=== PATIENT | male | born 1940 | race Caucasian/White ===

== ENCOUNTER 2016-10-29 17:32 | Emergency (ER) | payer OTHER ==
[2016-10-29 18:40] LABS: HEMOGLOBIN 15.6 gm/dl (14.0-17.5); RED BLOOD COUNT 4.84 M/UL (4.20-5.50); WHITE BLOOD COUNT 11.1 K/UL (4.5-11.0)
[2016-10-29 19:01] LABS: BUN/CREATININE RATIO 22 (0-10)
== END 2016-10-29 20:17 | disposition home or self-care (01) ==
LOC: ER1 17:32
PROVIDERS: Preventive Medicine Occupational Medicine
DX: T78.40XA Allergy, unspecified, initial encounter (principal); M19.90 Unspecified osteoarthritis, unspecified site; I48.91 Unspecified atrial fibrillation; J44.9 Chronic obstructive pulmonary disease, unspecified; X58.XXXA Exposure to other specified factors, initial encounter
CPT/HCPCS: 36415; 71010; 80053; 82550; 82553; 83874; 84484; 85025; 93005; 96374; 96375; 99283; J1200; J2930

== ENCOUNTER 2021-04-03 21:44 | Emergency (ER) | payer OTHER ==
[~2021-04-03 21:44] MED LIST: AMIODARONE HCL200 MG PO; BUSPIRONE HCL5 MG PO; CARVEDILOL25 MG PO; COQ1050 MG PO; DULOXETINE HCL20 MG PO; FISH OIL 1,0001 EAC4 PO; IPRAT-ALBUT 0.5-3 ML INH; MAGNESIUM250 MG PO; NEBULIZER UNIT INH; NITROSTAT0.4 MG SL; ONE DAILY MULT1 EAC1 PO; POTASSIUM99 M1 PO; PRAVACHOL20 MG PO; PROTONIX40 MG PO; ROXICODONE TAB 55 MG PO; SYMBICORT 160-1 INHA INH; VITAMIN C500 M4 PO; VITAMIN D1000 UNI1 PO; XARELTO20 MG PO
[2021-04-03 23:12] LABS: HEMOGLOBIN 12.9 gm/dl (14.0-17.5); RED BLOOD COUNT 4.22 M/UL (4.20-5.50); WHITE BLOOD COUNT 9.4 K/UL (4.5-11.0)
[2021-04-04] MEDS ORDERED: OMNICEF 300 MG300 MG PO (02:48)
== END 2021-04-04 03:00 | disposition home or self-care (01) ==
LOC: ER1 21:44
PROVIDERS: Emergency Medicine
DX: N30.90 Cystitis, unspecified without hematuria (principal); E11.9 Type 2 diabetes mellitus without complications; I10 Essential (primary) hypertension; J44.9 Chronic obstructive pulmonary disease, unspecified
CPT/HCPCS: 80053; 81001; 83605; 83690; 85025; 85610; 96374; 96375; 99284; J2270; J2405; Q9967

== ENCOUNTER 2021-04-05 22:43 | Emergency (ER) | payer OTHER ==
[~2021-04-05 22:43] MED LIST changes: +OMNICEF 300 MG300 MG PO
[2021-04-05 23:42] LABS: HEMOGLOBIN 11.6 gm/dl (14.0-17.5); RED BLOOD COUNT 3.85 M/UL (4.20-5.50); WHITE BLOOD COUNT 9.9 K/UL (4.5-11.0)
== END 2021-04-06 01:16 | disposition home or self-care (01) ==
LOC: ER1 22:43
PROVIDERS: Preventive Medicine Occupational Medicine
DX: F41.9 Anxiety disorder, unspecified (principal); G89.29 Other chronic pain
CPT/HCPCS: 71045; 80048; 85025; 93005; 99284

== ENCOUNTER → 2021-05-23 | Outpatient (CLI) | payer OTHER ==
[2021-05-23 14:36] LABS: HEMOGLOBIN 12.6 gm/dl (14.0-17.5); RED BLOOD COUNT 4.12 M/UL (4.20-5.50); WHITE BLOOD COUNT 8.8 K/UL (4.5-11.0)
== END ==
LOC: LAB 13:02
PROVIDERS: Nurse Practitioner Family
DX: E11.9 Type 2 diabetes mellitus without complications (principal); I10 Essential (primary) hypertension; E55.9 Vitamin D deficiency, unspecified; R60.9 Edema, unspecified
CPT/HCPCS: 80053; 80061; 82570; 82607; 83036; 84156; 84439; 84443; 85025

== ENCOUNTER 2021-08-03 15:16 | Emergency (ER) | payer OTHER ==
[2021-08-03 16:08] LABS: HEMOGLOBIN 12.8 gm/dl (14.0-17.5); RED BLOOD COUNT 4.21 M/UL (4.20-5.50); WHITE BLOOD COUNT 9.6 K/UL (4.5-11.0)
== END 2021-08-03 20:48 | disposition home or self-care (01) ==
LOC: ER1 15:16
PROVIDERS: Physician Assistant
DX: R33.9 Retention of urine, unspecified (principal); I48.91 Unspecified atrial fibrillation; F17.200 Nicotine dependence, unspecified, uncomplicated; J44.9 Chronic obstructive pulmonary disease, unspecified; I25.10 Atherosclerotic heart disease of native coronary artery without angina pectoris; I42.9 Cardiomyopathy, unspecified; Z79.01 Long term (current) use of anticoagulants; Z95.810 Presence of automatic (implantable) cardiac defibrillator
CPT/HCPCS: 51702; 71045; 80048; 81001; 82550; 82553; 83735; 83874; 84484; 85025; 87086; 93005; 99284

== ENCOUNTER 2021-09-03 21:35 | Emergency (ER) | payer OTHER ==
[2021-09-03 22:37] LABS: HEMOGLOBIN 11.7 gm/dl (14.0-17.5); RED BLOOD COUNT 3.96 M/UL (4.20-5.50); WHITE BLOOD COUNT 7.3 K/UL (4.5-11.0)
[2021-09-03] MEDS ORDERED: CEFUROXIME500 MG PO (23:31)
== END 2021-09-04 04:06 | disposition home or self-care (01) ==
LOC: ER1 21:35
PROVIDERS: Physician Assistant
DX: N39.0 Urinary tract infection, site not specified (principal); J18.9 Pneumonia, unspecified organism; R33.9 Retention of urine, unspecified; I11.0 Hypertensive heart disease with heart failure; I50.9 Heart failure, unspecified; R07.9 Chest pain, unspecified; E11.9 Type 2 diabetes mellitus without complications; I48.91 Unspecified atrial fibrillation; Z87.442 Personal history of urinary calculi; R06.00 Dyspnea, unspecified
CPT/HCPCS: 71045; 80053; 81001; 82550; 82553; 83605; 83880; 84484; 85025; 87077; 87086; 87186; 93005; 94664; 96374; 96375; 99284; J0696; J1940

== ENCOUNTER 2021-12-27 04:52 | Emergency (ER) | payer OTHER ==
[~2021-12-27 04:52] MED LIST changes: +CEFUROXIME500 MG PO
== END 2021-12-27 05:55 | disposition home or self-care (01) ==
LOC: ER1 04:52
DX: R33.9 Retention of urine, unspecified (principal); R10.819 Abdominal tenderness, unspecified site; E11.9 Type 2 diabetes mellitus without complications; I11.0 Hypertensive heart disease with heart failure; I50.9 Heart failure, unspecified; J44.9 Chronic obstructive pulmonary disease, unspecified; F17.210 Nicotine dependence, cigarettes, uncomplicated; Z95.810 Presence of automatic (implantable) cardiac defibrillator; Z88.7 Allergy status to serum and vaccine; Z87.442 Personal history of urinary calculi
CPT/HCPCS: 51702; 81001; 87086; 99283

== ENCOUNTER 2022-01-25 12:42 | Emergency (ER) | payer OTHER ==
[2022-01-25 14:10] LABS: HEMOGLOBIN 12.4 gm/dl (14.0-17.5); RED BLOOD COUNT 4.23 M/UL (4.20-5.50); WHITE BLOOD COUNT 8.8 K/UL (4.5-11.0)
[2022-01-25 14:32] LABS: BUN/CREATININE RATIO 14 (0-10)
== END 2022-01-25 16:07 | disposition home or self-care (01) ==
LOC: ER1 12:42
PROVIDERS: Emergency Medicine
DX: R33.9 Retention of urine, unspecified (principal); J44.9 Chronic obstructive pulmonary disease, unspecified; E11.9 Type 2 diabetes mellitus without complications; I25.10 Atherosclerotic heart disease of native coronary artery without angina pectoris; E78.5 Hyperlipidemia, unspecified; I10 Essential (primary) hypertension; Z95.0 Presence of cardiac pacemaker; F17.200 Nicotine dependence, unspecified, uncomplicated
CPT/HCPCS: 51702; 80053; 81001; 85025; 87086; 99283

== ENCOUNTER 2022-02-26 02:45 | Emergency (ER) | payer OTHER ==
[2022-02-26 04:51] LABS: HEMOGLOBIN 12.4 gm/dl (14.0-17.5); RED BLOOD COUNT 4.14 M/UL (4.20-5.50); WHITE BLOOD COUNT 13.1 K/UL (4.5-11.0)
[2022-02-26] MEDS ORDERED: CEPHALEXIN500 MG PO (06:33)
== END 2022-02-26 11:30 | disposition home or self-care (01) ==
LOC: ER1 02:45
PROVIDERS: Family Medicine
DX: N30.90 Cystitis, unspecified without hematuria (principal); R33.9 Retention of urine, unspecified; I11.0 Hypertensive heart disease with heart failure; I50.22 Chronic systolic (congestive) heart failure; I25.10 Atherosclerotic heart disease of native coronary artery without angina pectoris; E11.22 Type 2 diabetes mellitus with diabetic chronic kidney disease; N28.9 Disorder of kidney and ureter, unspecified; E78.5 Hyperlipidemia, unspecified; J44.9 Chronic obstructive pulmonary disease, unspecified; F17.200 Nicotine dependence, unspecified, uncomplicated; Z88.7 Allergy status to serum and vaccine; Z79.82 Long term (current) use of aspirin
CPT/HCPCS: 51702; 80048; 81001; 85025; 87077; 87086; 87186; 99284

== ENCOUNTER 2022-03-16 03:40 | Inpatient (IN) | payer OTHER ==
[~2022-03-16] VITALS: Ht 180.3 cm; Wt 73.5 kg
[~2022-03-16 03:40] MED LIST changes: +AMIODARONE HCL100 MG PO; -AMIODARONE HCL200 MG PO; +CEPHALEXIN500 MG PO; -DULOXETINE HCL20 MG PO; +DULOXETINE HCL60 MG PO
[2022-03-16 04:11] LABS: HEMOGLOBIN 11.5 gm/dl (14.0-17.5); RED BLOOD COUNT 3.91 M/UL (4.20-5.50); WHITE BLOOD COUNT 13.1 K/UL (4.5-11.0)
[2022-03-16 04:38] LABS: BUN/CREATININE RATIO 22 (0-10)
[2022-03-16] MEDS ORDERED: MEXILETINE HCL200 MG PO (11:30)
[2022-03-16] MEDS ORDERED: LISINOPRIL20 MG PO (11:31)
[2022-03-16] MEDS ORDERED: GLUCOPHAGE 500500 MG PO (11:31)
[2022-03-16] MEDS ORDERED: FLOMAX 0.4 MG0.4 MG PO (11:32)
[2022-03-16] MEDS ORDERED: CRANBERRY200 MG PO (11:32)
[2022-03-16 17:48] LABS: BORDETELLA PARAPERTUSSIS Not Detected (Not Detectd); BORDETELLA PERTUSSIS Not Detected (Not Detectd); CHLAMYDIA PNEUMONIAE Not Detected (Not Detectd); CORONAVIRUS HKU1 Not Detected (Not Detectd); CORONAVIRUS NL63 Not Detected (Not Detectd); CORONAVIRUS OC43 Not Detected (Not Detectd); CORONOAVIRUS 229E Not Detected (Not Detectd); HUMAN METAPNEUMOVIRUS Not Detected (Not Detectd); HUMAN RHINOVIRUS/ENTEROVIRUS Not Detected (Not Detectd); INFLUENZA A Not Detected (Not Detectd); INFLUENZA B Not Detected (Not Detectd); MYCOPLASMA PNEUMONIAE Not Detected (Not Detectd); PARAINFLUENZA VIRUS 1 Not Detected (Not Detectd); PARAINFLUENZA VIRUS 2 Not Detected (Not Detectd); PARAINFLUENZA VIRUS 3 Not Detected (Not Detectd); PARAINFLUENZA VIRUS 4 Not Detected (Not Detectd); RESPIRATORY SYNCYTIAL VIRUS Not Detected (Not Detectd)
[2022-03-16 18:55] LABS: SARS-CoV-2 NOT DETECTED (Not Detectd)
[2022-03-17 05:48] LABS: HEMOGLOBIN 10.9 gm/dl (14.0-17.5); RED BLOOD COUNT 3.75 M/UL (4.20-5.50)
[2022-03-17 05:52] LABS: WHITE BLOOD COUNT 7.8 K/UL (4.5-11.0)
[2022-03-17 13:43] LABS: CANDIDA ALBICANS Not Detected (Negative); CANDIDA KRUSEI Not Detected (Negative); CANDIDA TROPICALIS Not Detected (Negative); ESCHERICHIA COLI Not Detected (Negative); HAEMOPHILUS INFLUENZAE Not Detected (Negative); KLEBSIELLA OXYTOCA Not Detected (Negative); KLEBSIELLA PNEUMONIAE Not Detected (Negative); KPC-CARBAPENEM-RESISTANCE GENE Not Detected (Negative); PROTEUS Not Detected (Negative); PSEUDOMONAS AERUGINOSA Not Detected (Negative); SERRATIA MARCESANS Not Detected (Negative); STAPHYLOCOCCUS AUREUS Not Detected (Negative); STREP AGALACTIAE (GROUP B) Not Detected (Negative); STREP PYOGENES (GROUP A) Not Detected (Negative); STREPTOCOCCUS Not Detected (Negative); vanA/B (VANCOMYCIN RESIST GENE Not Detected (Negative)
[2022-03-17 15:15] LABS: STAPHYLOCOCCUS DETECTED (Negative)
[2022-03-18 04:59] LABS: HEMOGLOBIN 10.3 gm/dl (14.0-17.5); RED BLOOD COUNT 3.52 M/UL (4.20-5.50); WHITE BLOOD COUNT 6.9 K/UL (4.5-11.0)
[2022-03-18 05:01] LABS: BUN/CREATININE RATIO 20 (0-10)
[2022-03-19 01:45] LABS: HEMOGLOBIN 10.7 gm/dl (14.0-17.5); RED BLOOD COUNT 3.64 M/UL (4.20-5.50); WHITE BLOOD COUNT 7.2 K/UL (4.5-11.0)
[2022-03-19 02:08] LABS: BUN/CREATININE RATIO 23 (0-10)
[2022-03-19 16:14] LABS: ORGANISM ID Not indicated. (.); SPECIMEN SOURCE Urine (.); STREPTOCOCCUS PNEUMONIAE AG Negative (Negative)
[2022-03-20 07:29] LABS: HEMOGLOBIN 10.8 gm/dl (14.0-17.5); RED BLOOD COUNT 3.71 M/UL (4.20-5.50); WHITE BLOOD COUNT 7.6 K/UL (4.5-11.0)
[2022-03-20 07:51] LABS: BUN/CREATININE RATIO 19 (0-10)
[2022-03-20] MEDS ORDERED: CEFUROXIME500 MG PO (17:53)
== END 2022-03-20 22:35 | disposition home health service (06) | DRG 871 ==
LOC: ER1 03:40 → CDU 08:40 → PROG CARE 08:40
PROVIDERS: Internal Medicine; Physician Assistant Medical; Student in an Organized Health Care Education/Training Program; ADMIT Internal Medicine
PROC: 3E03329 Introduction of Other Anti-infective into Peripheral Vein, Percutaneous Approach (ICD-10-PCS; principal; 2022-03-16)
PROC: 3E033XZ Introduction of Vasopressor into Peripheral Vein, Percutaneous Approach (ICD-10-PCS; 2022-03-16)
PROC: 4A03XR1 Measurement of Arterial Saturation, Peripheral, External Approach (ICD-10-PCS; 2022-03-16)
PROC: B24BZZZ Ultrasonography of Heart with Aorta (ICD-10-PCS; 2022-03-20)
DX: A41.9 Sepsis, unspecified organism (principal); J18.9 Pneumonia, unspecified organism; R65.21 Severe sepsis with septic shock; T83.518A Infection and inflammatory reaction due to other urinary catheter, initial encounter; I13.0 Hypertensive heart and chronic kidney disease with heart failure and stage 1 through stage 4 chronic kidney disease, or unspecified chronic kidney disease; I50.22 Chronic systolic (congestive) heart failure; J44.0 Chronic obstructive pulmonary disease with (acute) lower respiratory infection; N30.00 Acute cystitis without hematuria; N17.9 Acute kidney failure, unspecified; I25.5 Ischemic cardiomyopathy; I25.10 Atherosclerotic heart disease of native coronary artery without angina pectoris; I48.0 Paroxysmal atrial fibrillation; N18.30 Chronic kidney disease, stage 3 unspecified; E78.5 Hyperlipidemia, unspecified; D63.1 Anemia in chronic kidney disease; Z96.661 Presence of right artificial ankle joint; Y95 Nosocomial condition; E11.22 Type 2 diabetes mellitus with diabetic chronic kidney disease; L89.322 Pressure ulcer of left buttock, stage 2; B96.89 Other specified bacterial agents as the cause of diseases classified elsewhere; L89.312 Pressure ulcer of right buttock, stage 2; R07.89 Other chest pain; Z95.1 Presence of aortocoronary bypass graft; Z79.899 Other long term (current) drug therapy; Z79.01 Long term (current) use of anticoagulants; I25.2 Old myocardial infarction; Z95.810 Presence of automatic (implantable) cardiac defibrillator; Z88.8 Allergy status to other drugs, medicaments and biological substances; Z87.891 Personal history of nicotine dependence; Z82.49 Family history of ischemic heart disease and other diseases of the circulatory system
CPT/HCPCS: ECHO; 36415; 36600; 51702; 71045; 73060; 80048; 80053; 80202; 81001; 82550; 82553; 82803; 82962; 83605; 83690; 83735; 83880; 84484; 85025; 85027; 85610; 85730; 87040; 87077; 87081; 87086; 87150; 87186; 87278; 87633; 87899; 93005; 93306; 94640; 94664; 94760; 94762; 96374; 96375; 97110-GP-CQ; 97116; 97116-GP-CQ; 97162; 97165; 99285; C9113; J0696; J1335; J1644; J2185; J2270; J2405; J2543; J3370; J7070; Q9967